=== PATIENT | female | born 1980 | race Two or more races ===

== ENCOUNTER 2017-02-12 11:33 | Emergency (ER) | payer OTHER ==
[2017-02-12 12:13] VITALS: RESP 18
[2017-02-12] MEDS ORDERED: ACETAMINOPHEN 500 MG TAB PO ONE (13:57)
--- NOTE | 2017-02-12 14:34 | EDPHY ---
H & P Stated Complaint: Flu sxs since Monday HPI/ROS: CHIEF COMPLAINT: Malaise, fever, cough HISTORY OF PRESENT ILLNESS: The patient is a 36 y/o female complaining of malaise for the last 3 days. She complains of a cough, nasal congestion, fever, and myalgias. She has associated constipation and lack of appetite, but denies vomiting or significant abdominal pain. She has been using Advil and Afrin for symptoms with minimal improvement. She denies sore throat, earache, chest pain, abdominal pain, vomiting, and dysuria. She did not get a flu vaccination this season. REVIEW OF SYSTEMS: A ten point review of systems was performed and is negative with the exception of the items mentioned in the HPI. Past medical history: Denies Past surgical history: Noncontributory Family history: Noncontributory Social history: Flying to [place] tomorrow. 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 General Appearance: Alert. Vital signs reviewed. HR 103. Eyes: Pupils equal and round, no conjunctival injection, no discharge. Anicteric. ENT, Mouth: Mucous membranes are moist, no oropharyngeal erythema or edema. Neck: No lymphadenopathy, supple. Respiratory: Lungs are clear to auscultation; no wheezes, rales, or rhonchi. Cardiovascular: Tachycardic regular rate and rhythm; no murmur, rub, or gallop. Gastrointestinal: Abdomen is soft and nontender, no masses or organomegaly. Skin: Warm and dry, no rashes on exposed skin, normal color. Back: Nontender to palpation over the thoracolumbar spine. No CVAT. Extremities: No lower extremity edema, no calf tenderness or swelling. Neurological: Alert and oriented. Moving all four extremities easily and equally. Psychiatric: Normal affect. - Personal History LMP (Females 10-55): 22-28 Days Ago Current Tetanus Diphtheria and Acellular Pertussis (TDAP): Unsure - Medical/Surgical History Other PMH: healthy - Social History Smoking Status: Never smoked Constitutional: Initial Vital Signs Temperature (C) 38.2 C 02/12/17 11:55 Heart Rate 103 H 02/12/17 11:55 Respiratory Rate 18 02/12/17 11:55 Blood Pressure 100/70 02/12/17 11:55 O2 Sat (%) 97 02/12/17 11:55 O2 Delivery Mode Room Air Allergies/Adverse Reactions: No Known Allergies Allergy (Unverified 02/12/17 12:09) Home Medications: Medication Instructions Recorded NK [No Known Home Meds] 02/12/17 Medical Decision Making ED Course/Re-evaluation: This is a healthy 36 y/o female who presents with a 3-day history of fever, myalgias, and cough. Her presentation is clinically consistent with influenza. Plan for flu swab and symptomatic management here. 1L IV NS and 1000mg PO Tylenol administered. Positive for Flu A. I do not suspect pneumonia or bacterial illness. Patient will be discharged home with standard flu care and follow up instructions. Return precautions discussed. She is comfortable with this plan. Differential Diagnosis: DDXs includes influenza, sinusitis, pneumonia, bronchitis, viral syndrome. - Data Points Medications Given: Discontinued Medications Acetaminophen (Tylenol) 1,000 mg PO EDNOW ONE Stop: 02/12/17 13:58 Last Admin: 02/12/17 14:01 Dose: 1,000 mg Sodium Chloride (Ns) 1,000 mls @ 0 mls/hr IV EDNOW ONE; Wide Open PRN Reason: Protocol Stop: 02/12/17 14:45 Last Admin: 02/12/17 14:52 Dose: 1,000 mls Departure - Departure Disposition: Home, Routine, Self-Care Clinical Impression: Flu Condition: Good Instructions: Influenza (ED) Additional Instructions: 1. Increase fluid intake. 2. Continue ibuprofen and Tylenol as directed for pain and fever. 3. You can use pseudoephedrine, available at the pharmacy counter, if needed for nasal congestion. 4. I do not recommend flying while symptoms are present as you are likely contagious. You've been given an airline excuse to show to your airline to help you reschedule or refund your flight. 5. Follow up with your primary care provider for unimproved symptoms over the next week. Referrals: Marlon Riggs [Doctor of Osteopathy] - As per Instructions Stand Alone Forms: Airline Excuse Report Scribed for: Nicolette Borrego Report Scribed by: Shirlene Vega Date of Report: 02/12/17 Time of Report: 14:41 Physician Review and Approval Statement: 02/12/17 14:34 Portions of this note were transcribed by the medical photographer. I, Dr. Nicolette Borrego, personally performed the history, physical exam, and medical decision- making; and confirmed the accuracy of the information in the transcribed note.
[2017-02-12] MEDS ORDERED: NS 1,000 ML IV ONE (14:44)
[2017-02-12 17:31] VITALS: BP 98/71; PULSE 82; TEMP 99; O2SAT 97
== END 2017-02-12 17:33 | disposition home or self-care (01) ==
DX: J11.1 Influenza due to unidentified influenza virus with other respiratory manifestations (principal); E86.9 Volume depletion, unspecified

== ENCOUNTER 2017-02-19 12:13 | Emergency (ER) | payer OTHER ==
[2017-02-19 12:19] VITALS: TEMP 98.4
--- NOTE | 2017-02-19 12:26 | EDPHY ---
H & P Stated Complaint: URI last week, mouth and eye droop starting Monday not getting better Time Seen by Provider: 02/19/17 12:26 HPI/ROS: HPI: This is a 36-year-old female who presents with Chief Complaint: URI last week, mouth and eye droop starting Monday not getting better Location: Quality: Duration: Signs and Symptoms: + unilateral facial paralysis, + inability to raise eyebrows , + mouth drooping, + incomplete closure of eyelid, + alteration in taste, no hyperacusis, no inability to produce tears, + facial numbness, no ear pain Timing: Severity: Context: Patient presents with complaints of right eye droop and left mouth drop times 48 hours accompanied by decreased taste, incomplete closure of right eyelid, left upper lip numbness and alteration in taste. ER visit on 02/12/2017 in this emergency room with flu A. Not a candidate for Tamiflu at the time. Patient was seen and follow up with [facility] on Monday for continued symptoms of rhinorrhea. Patient was given Sudafed and Mucinex and used for 2 days but unable to sleep at night and felt like it was not working. Monday patient woke up and noticed that her right eye and mouth were drooping. She denies any fever/neck stiffness/ear pain/headache/vision changes. She reports that she is actually feeling better as far as the flu standpoint with decreased fatigue/cough/body aches. She reports that she has been under lot of stress over the last month she has had multiple illnesses and had a close family member whom . Patient extremely anxious and worried she has had viral symptoms off and on for the last 1-2 months. LMP 1-7 days ago. Patient is originally from [place], [place] will be visiting in the next week. Modifying Factors: None Comment: ROS: see HPI Constitutional: No fever, no chills, no weight loss Eyes: No blurred vision Respiratory: No shortness of breath, no cough Cardiovascular: No chest pain Gastrointestinal: No nausea, no vomiting, no diarrhea Genitourinary: No dysuria Extremities: No myalgias Neurologic: No weakness, no numbness Skin: No rashes Hematologic: No bruising, no bleeding MEDICAL/SURGICAL/SOCIAL HISTORY: Medical history: Generally healthy. Does not take any regular medications. Surgical history: Denies Social history: Employed. CONSTITUTIONAL: Extremely well-appearing adult female, awake and alert, no obvious distress HEENT: Atraumatic and normocephalic, PERRL, EOMI. Tympanic membranes clear. Oropharynx clear, no exudate and moist pink mucosa. Airway patent. No lymphadenopathy. No meningismus. Cardiovascular: Normal S1/S2, regular rate, regular rhythm, without murmur rub or gallop. PULMONARY/CHEST: Symmetrical and nontender. Clear to auscultation bilaterally. Good air movement. No accessory muscle usage. ABDOMEN: Soft, nondistended, nontender, no rebound, no guarding, no peritoneal signs, no masses or organomegaly. No CVAT. EXTREMITIES: 2/2 pulses, strength 5/5, no deformities, no clubbing, no cyanosis or edema. NEUROLOGICAL: GCS 15. Inability to raise right eyebrow. Inability to fully close right upper eyelid. Right-sided facial droop. Left upper lip mild numbness to light sensation. Hearing intact. SKIN: Warm and dry, no erythema. no rash. Good capillary refill. Source: Patient Exam Limitations: No limitations - Personal History LMP (Females 10-55): 1-7 Days Ago Current Tetanus/Diphtheria Vaccine: No Current Tetanus Diphtheria and Acellular Pertussis (TDAP): No - Medical/Surgical History Hx Asthma: No Hx Chronic Respiratory Disease: No Hx Diabetes: No Hx Cardiac Disease: No Hx Renal Disease: No Hx Cirrhosis: No Hx Alcoholism: No Hx HIV/AIDS: No Hx Splenectomy or Spleen Trauma: No Other PMH: none reported - Social History Smoking Status: Never smoked Constitutional: Initial Vital Signs Temperature (C) 36.9 C 02/19/17 12:16 Heart Rate 90 02/19/17 12:16 Respiratory Rate 18 02/19/17 12:16 Blood Pressure 107/71 02/19/17 12:16 O2 Sat (%) 97 02/19/17 12:16 O2 Delivery Mode Room Air Allergies/Adverse Reactions: No Known Allergies Allergy (Verified 02/19/17 12:15) Home Medications: Medication Instructions Recorded Carboxymethylcellulos/Glycerin 10 ml OP HS #10 ml 02/19/17 [Refresh Optive Gel Eye Drops] Polysorbate 80/Glycerin [Refresh 2 drops OP Q2-4PRN PRN #15 ml 02/19/17 Dry Eye Therapy Drops] predniSONE 60 mg PO DAILY #21 tab 02/19/17 Medical Decision Making ED Course/Re-evaluation: Labs (per patient request), IV fluids, oral medications ordered Vital signs reviewed and stable upon arrival. Given 1 L normal saline, p.o. prednisone 80 mg No signs of sepsis/temporal arteritis/CVA/ischemia/cellulitis/otitis media/ sinusitis/parotitis/sjogren syndrome Patient given extensive information regarding Hill's palsy and the prognosis. She understands she is to follow up with Ophthalmology and ENT. This patient was seen under the supervision of my secondary supervising physician. I evaluated care for this patient independently. Discussed this patient with who did not see the patient. The patient was seen in conjunction with Dr. Gonsalves, who saw and evaluated the patient. Patient's presentation, labs/imaging, treatment and plan of care were discussed with secondary supervising physician. Differential Diagnosis: Differential diagnosis includes but is not limited to Hill's palsy, CVA, trigeminal neuralgia, herpes zoster ophthalmicus, HAND MARKER tumor. - Data Points Laboratory Results: Laboratory Results 02/19/17 12:50 02/19/17 12:50 02/19/17 02/19/17 12:50 12:50 WBC 4.68 10^3/uL 10^3/uL (3.80-9.50) RBC 4.33 10^6/uL 10^6/uL (4.18-5.33) Hgb 13.0 g/dL g/dL (12.6-16.3) Hct 37.6 % L % (38.0-47.0) MCV 86.8 fL fL (81.5-99.8) MCH 30.0 pg pg (27.9-34.1) MCHC 34.6 g/dL g/dL (32.4-36.7) RDW 12.7 % % (11.5-15.2) Plt Count 197 10^3/uL 10^3/uL (150-400) MPV 9.5 fL fL (8.7-11.7) Neut % (Auto) 52.6 % % (39.3-74.2) Lymph % (Auto) 35.7 % % (15.0-45.0) [place] % (Auto) 9.8 % % (4.5-13.0) Eos % (Auto) 1.5 % % (0.6-7.6) Baso % (Auto) 0.4 % % (0.3-1.7) Nucleat RBC Rel Count 0.0 % % (0.0-0.2) Absolute Neuts (auto) 2.46 10^3/uL 10^3/uL (1.70-6.50) Absolute Lymphs (auto) 1.67 10^3/uL 10^3/uL (1.00-3.00) Absolute Monos (auto) 0.46 10^3/uL 10^3/uL (0.30-0.80) Absolute Eos (auto) 0.07 10^3/uL 10^3/uL (0.03-0.40) Absolute Basos (auto) 0.02 10^3/uL 10^3/uL (0.02-0.10) Absolute Nucleated RBC 0.00 10^3/uL 10^3/uL (0-0.01) Immature Gran % 0.0 % % (0.0-1.1) Immature Gran # 0.00 10^3/uL 10^3/uL (0.00-0.10) ESR Pending Sodium 139 mEq/L mEq/L (134-144) Potassium 4.2 mEq/L mEq/L (3.5-5.2) Chloride 104 mEq/L mEq/L (97-110) Carbon Dioxide 25 mEq/l mEq/l (22-31) Anion Gap 10 mEq/L mEq/L (8-16) BUN 11 mg/dL mg/dL (7-23) Creatinine 0.7 mg/dL mg/dL (0.6-1.0) Estimated GFR > 60 Glucose 85 mg/dL mg/dL (70-100) Calcium 9.3 mg/dL mg/dL (8.5-10.4) Magnesium 2.0 mg/dL mg/dL (1.6-2.3) C-Reactive Protein < 5.0 mg/L mg/L (<10.0) Medications Given: Discontinued Medications Sodium Chloride (Ns) 1,000 mls @ 0 mls/hr IV EDNOW ONE; Wide Open PRN Reason: Protocol Stop: 02/19/17 12:44 Last Admin: 02/19/17 13:03 Dose: 1,000 mls Prednisone (Prednisone) 80 mg PO EDNOW ONE Stop: 02/19/17 12:43 Last Admin: 02/19/17 13:04 Dose: 80 mg Departure - Departure Disposition: Home, Routine, Self-Care Clinical Impression: Hill's palsy Condition: Good Instructions: Hill Palsy (ED) Additional Instructions: Affected eye should be taped shut at night. Use artificial tears every hour while patient is awake and eye gel at night. Follow-up with Ophthalmology in the next 5-7 days for monitoring of the affected cornea. Follow-up with ear nose and throat in the next 5-7 days for close monitoring. Take steroids every day x 1 week. Stop using Afrin nasal spray and Sudafed. Referrals: Dipak Ordonez MD [Medical Doctor] - As per Instructions Rafaela Bishop MD [Medical Doctor] - As per Instructions Prescriptions: Carboxymethylcellulos/Glycerin [Refresh Optive Gel Eye Drops] 10 ml OP HS #10 ml Polysorbate 80/Glycerin [Refresh Dry Eye Therapy Drops] 2 drops OP Q2-4PRN PRN # 15 ml PRN Reason: Dry Irritated Eyes predniSONE 60 mg PO DAILY #21 tab
[2017-02-19] MEDS ORDERED: predniSONE 20 MG TAB PO ONE (12:42)
[2017-02-19] MEDS ORDERED: NS 1,000 ML IV ONE (12:43)
[2017-02-19 13:05] LABS: PLATELET COUNT 197 10^3/uL (150-400)
[2017-02-19 14:03] VITALS: BP 112/67; PULSE 81; RESP 16; O2SAT 96
== END 2017-02-19 14:04 | disposition home or self-care (01) ==
DX: G51.0 Bell's palsy (principal); E86.9 Volume depletion, unspecified

== ENCOUNTER 2018-04-27 13:58 | Emergency (ER) | payer OTHER ==
--- NOTE | 2018-04-27 15:41 | EDPHY ---
H & P Time Seen by Provider: 04/27/18 15:20 HPI/ROS: CHIEF COMPLAINT: finger pain and swelling HISTORY OF PRESENT ILLNESS: 38-year-old female presents with pain and swelling rt 4th finger. Onset of mild pain a few days ago, gradually increasing. Now moderate and associated with swelling. Ibuprofen with some relief in pain. No relief with topical antibiotics. ROS: No numbness, weakness, excessive bleeding, syncopal episode, other injury. Past Medical/Surgical History: Denies Smoking Status: Never smoked Physical Exam: Alert, pleasant Extremities/skin: Right 4th digit-paronychia present medially with surrounding erythema, warmth and tenderness adjacent to the nail Neuro: Motor and sensory intact Vascular: Capillary refill brisk distally Constitutional: Initial Vital Signs Temperature (C) 37.1 C 04/27/18 14:07 Heart Rate 71 04/27/18 14:07 Respiratory Rate 16 04/27/18 14:07 Blood Pressure 110/75 04/27/18 14:07 O2 Sat (%) 98 04/27/18 14:07 O2 Delivery Mode Room Air Allergies/Adverse Reactions: No Known Allergies Allergy (Verified 04/27/18 14:06) Home Medications: Medication Instructions Recorded Cephalexin [Keflex (*)] 500 mg PO TID #21 cap 04/27/18 Medical Decision Making Procedures: Paronychia drainage: 1% lidocaine digital block, followed by 11 blade scalpel to zuri the paronychia. Purulent drainage present. Wound cleansed and bandaged. Departure - Departure Disposition: Home, Routine, Self-Care Clinical Impression: Paronychia of finger of right hand Condition: Good Instructions: Paronychia (ED) Additional Instructions: Ibuprofen 600 mg 3 times daily while the pain persists. Take antibiotics as prescribed. Return for worsening symptoms or any concerns. Referrals: ALEENA STOLL MD [Primary Care Provider] - As per Instructions Prescriptions: Cephalexin [Keflex (*)] 500 mg PO TID #21 cap
[2018-04-27 16:37] VITALS: BP 127/81
== END 2018-04-27 16:36 | disposition home or self-care (01) ==
PROC: 0H9FXZZ Drainage of Right Hand Skin, External Approach (ICD-10-PCS; principal; 2018-04-27)
DX: L03.011 Cellulitis of right finger (principal)